=== PATIENT | female | born 1990 | race Caucasian/White ===

== ENCOUNTER 2017-08-08 12:50 | Inpatient (IN) | payer BC ==
[2017-08-08 13:28] VITALS: BMI 26.6
[2017-08-08] MEDS ORDERED: Lidocaine 1% (PF) 30 ML VIAL ONE (13:51)
[2017-08-08] MEDS ORDERED: LR / Pitocin 40 units/1000 ml 1,000 ML ONE (13:51)
[2017-08-08] MEDS ORDERED: Ibuprofen 800 MG TAB PO PRN (14:02)
[2017-08-08] MEDS ORDERED: LR / Pitocin 40 units/1000 ml 1,000 ML IV PRN (14:02)
[2017-08-08] MEDS ORDERED: Methylergonovine 0.2 MG/ML VIAL IM PRN (14:02)
[2017-08-08] MEDS ORDERED: Acetaminophen 500 MG TAB PO PRN (14:02)
[2017-08-08] MEDS ORDERED: Promethazine HCl 25 MG/ML VIAL IM PRN (14:02)
[2017-08-08] MEDS ORDERED: Ondansetron HCl/PF 4 MG/2 ML Vial IVP PRN (14:02)
[2017-08-08] MEDS ORDERED: Lidocaine 1% (PF) 30 ML VIAL SC PRN (14:02)
[2017-08-08] MEDS ORDERED: Carboprost 250 MCG/ML AMP IM PRN (14:02)
[2017-08-08] MEDS ORDERED: Misoprostol 200 MCG TAB PR PRN (14:02)
[2017-08-08 14:29] LABS: Red Blood Cell (RBC) Count 3.91 mill/uL (4.20-5.40); White Blood Cell (WBC) Count 9.4 thou/uL (4.8-10.8)
[2017-08-08] MEDS ORDERED: Adacel (T-DAP) 0.5 ML VIAL IM ONE (18:02)
[2017-08-08] MEDS ORDERED: Bisacodyl 10 MG SUPP PR PRN (18:02)
[2017-08-08] MEDS ORDERED: Ferrous Sulfate 325 MG TAB PO SCH (18:02)
[2017-08-08] MEDS ORDERED: traMADol HCl 50 MG TAB PO PRN (18:02)
[2017-08-08] MEDS ORDERED: LR / Pitocin 40 units/1000 ml 1,000 ML IV SCH (18:02)
[2017-08-08] MEDS ORDERED: Lanolin Ointment 7 GM TUBE TOP PRN (18:02)
[2017-08-08] MEDS ORDERED: Milk Of Magnesia 30 ML UDCUP PO PRN (18:02)
[2017-08-08] MEDS ORDERED: Preparation H Ointment 28 GM TUBE PR PRN (18:02)
--- NOTE | 2017-08-08 18:43 | OP ---
DATE OF DELIVERY: 08/08/2017 PREOPERATIVE DIAGNOSIS: Term intrauterine . POSTOPERATIVE DIAGNOSIS: Term intrauterine . PROCEDURE PERFORMED: Normal spontaneous vaginal delivery. SURGEON: Sherice Velazquez M.D. ANESTHESIA: None. ESTIMATED BLOOD LOSS: 300 mL. BRIEF DELIVERY SUMMARY: This is a 27-year-old G2, now P2 who presented in active labor. She progre ssed well to complete and pushing. She delivered a live male infant, head OA. Mouth and nares was bulb suctioned at the perineum. There was no nuchal cord. Shoulders and body easily followed and t he infant was placed on mother's abdomen. Infant's Apgars were 8 at 1 minute and 9 at 5 minutes. T he umbilical cord was doubly clamped and cut and cord blood was collected and sent for analysis. Pl francois delivered spontaneously and intact with a 3-vessel umbilical cord. There was a large gush of blood following the delivery of the placenta. Therefore, Pitocin was started in the IV. This reso lved with bimanual massage and evacuation of clot as well as Pitocin. Cervix, vagina, and perineum were inspected for lacerations and there were none to be found. Mom and baby were left with the lester se in excellent condition attempting to breast feed.
[2017-08-08] MEDS: Docusate Calcium (SURFAK) 240 MG CAP PO SCH (23:04)
[2017-08-08] MEDS: Ibuprofen 800 MG TAB PO SCH (23:04)
[2017-08-09] MEDS ORDERED: Prenatal Vitamin 1 TAB PO SCH (09:00)
[2017-08-09] MEDS: Ibuprofen 800 MG TAB PO SCH ×2 (09:47→14:28)
[2017-08-09] MEDS: Docusate Calcium (SURFAK) 240 MG CAP PO SCH (09:47)
[2017-08-09 12:04] VITALS: BP 118/68; TEMP 98
== END 2017-08-09 18:35 | disposition home or self-care (01) | DRG 775 ==
LOC: L&D/OP 12:50 → L&D-LIB 13:54 → 3SW 21:23
PROVIDERS: ADMIT Obstetrics & Gynecology; ATTEND Family Medicine
PROC: 10E0XZZ Delivery of Products of Conception, External Approach (ICD-10-PCS; principal; 2017-08-08)
DX: O80 Encounter for full-term uncomplicated delivery (principal); Z37.0 Single live birth; Z3A.41 41 weeks gestation of pregnancy
CPT/HCPCS: 85027; 86780; 87340; 90715; J2001

== ENCOUNTER 2018-07-18 11:00 | Outpatient (CLI) | payer OTHER ==
--- NOTE | 2018-07-18 13:40 | ULT ---
SONOGRAM RIGHT UPPER QUADRANT: Date: 07/18/18 HISTORY: Right upper quadrant pain. FINDINGS: No shadowing stones are apparent within the gallbladder lumen. At the level of the gallbladder neck, well circumscribed echogenicity along the gallbladder wall is continuous with the gallbladder. It castro s not have the appearance of a mobile stone. No shadowing. It appears to arise from the wall. Conside rations would include a very prominent gallbladder wall fold or nodular process arising from the gall bladder wall. No pericholecystic fluid. Common duct is 0.3 cm. Liver unremarkable without focal mass or intrahepatic biliary dilatation. No free fluid. IMPRESSION: 1. No evidence of gallstones or biliary obstruction. 2. Lobular nonshadowing prominence of the gallbladder wall near the gallbladder neck, as detailed ab ove. It could represent a prominent gallbladder fold. Given the appearance, however, follow-up is war ranted to exclude the possibility of a mass arising from the gallbladder wall. Please consider follow -up right upper quadrant sonogram in 6 months to evaluate for stability. POS: BANDAR
== END 2018-07-18 11:01 | disposition home or self-care (01) ==
LOC: ULT 11:00
PROVIDERS: ATTEND Family Medicine
DX: R10.11 Right upper quadrant pain (principal); K82.8 Other specified diseases of gallbladder
CPT/HCPCS: 76705

== ENCOUNTER 2019-11-15 12:36 | Inpatient (IN) | payer OTHER ==
[2019-11-15 13:15] VITALS: BMI 28.1
[2019-11-15] MEDS ORDERED: hydrALAZINE 20 MG/ML VIAL SLOW IVP PRN ×2 (13:37→14:26)
[2019-11-15 14:08] LABS: Amnisure Test RUPTURE DETECTED (No Rupture)
[2019-11-15 14:10] LABS: Amnisure Internal Control QC ACCEPTABLE (ACCEPTABLE)
[2019-11-15] MEDS ORDERED: Promethazine HCl 25 MG/ML VIAL IM PRN ×2 (14:26→21:14)
[2019-11-15] MEDS ORDERED: Methylergonovine 0.2 MG/ML VIAL IM PRN (14:26)
[2019-11-15] MEDS ORDERED: Acetaminophen 500 MG TAB PO PRN (14:26)
[2019-11-15] MEDS ORDERED: Ondansetron PF 4 MG/2 ML Vial IVP PRN ×2 (14:26→21:14)
[2019-11-15] MEDS ORDERED: Misoprostol 200 MCG TAB PR PRN (14:26)
[2019-11-15] MEDS ORDERED: Diphenoxylate HCl/Atropine Tablet PO PRN ×2 (14:26)
[2019-11-15] MEDS ORDERED: Lidocaine 1% (PF) 30 ML VIAL SC PRN (14:26)
[2019-11-15] MEDS ORDERED: Carboprost 250 MCG/ML AMP IM PRN (14:26)
[2019-11-15] MEDS ORDERED: Ibuprofen 800 MG TAB PO PRN (14:26)
[2019-11-15] MEDS ORDERED: NS / Oxytocin 40 units/1000ml 1,000 ML IV PRN (14:26)
[2019-11-15 15:33] LABS: Hemoglobin 11.6 g/dL (12.0-16.0); Mean Corpuscular HGB CONC 34.9 g/dL (32.0-36.0); Mean Corpuscular Hemoglobin 30.6 pg (27.0-31.0); Mean Corpuscular Volume 87.6 fL (78.0-98.0); Mean Platelet Volume 9.7 fL (7.4-10.4); Platelet Count 171 thou/uL (130-400); RBC Distribution Width 11.5 % (11.5-14.5); Red Blood Cell (RBC) Count 3.79 mill/uL (4.20-5.40); White Blood Cell (WBC) Count 9.4 thou/uL (4.8-10.8)
[2019-11-15 16:11] LABS: Syphilis Antibody Nonreactive (Nonreactive); Syphilis Antibody Index 0.05 S/CO (<1.00 Non-Reactive)
[2019-11-15 16:12] LABS: HBSAg Index 0.17 S/CO (0-0.99); Hep B Surf Ag Non-Reactive S/CO (NonReactive)
--- NOTE | 2019-11-15 16:54 | PDOC.LDHP ---
Labor and Delivery H&P Chief complaint: loss of fluid (Yesterday, clear, small amount, continues to trickle) HPI: Term IUP. ROM yesterday morning, slow leak, clear fluid. CTX started today, not really strong yet. Getting a little more frequent. Current gestational age (weeks): 40 Due date: 11/12/19 Dating criteria: last menstrual period, first trimester ultrasound Grav: 6 Para: 2 OB History Details: MTHFR mutation on methylated folate, on progesterone and ASA this for h/o recurrent miscarriage Current complications: none Abnormal US findings: No Current medications: pre-rody vitamins Previous surgical history: none Allergies/Adverse Reactions: Allergies Allergy/AdvReac Type Severity Reaction Status Date / Time morphine Allergy Verified 03/21/15 16:44 Social history: none - Physical Exam Vital signs reviewed and normal: yes General: NAD Heart: RRR Lungs: CTAB Abdomen: gravid Extremeties: no edema FHT: category 1, variability present [place] contractions every: 5 minutes - Vaginal Exam cm dilated: 4 Effacement: 50% Station: -2 - OB Labs Blood type: O RH: positive Antibody Screen: negative HIV: negative RPR: negative HEPSAg: negative 1 hour GCT: negative GBS: negative Urine drug screen: not done Rubella: immune - Assessment L&D Assessment: term rupture in membranes (Clear fluid. Amnisure positive. Leaking increased as was being admitted to L&D.) - Plan Plan: admit to L&D, labor augmentation if indicated, informed consent obtained, anesthesia consult for pain management (Wants low intervention. Admitted to low intervention suite.)
[2019-11-15 18:02] LABS: HIV (1/2) Antibody/Antigen Non-Reactive (NonReactive); HIV 1/2 INDEX 0.07 S/CO (<1.00)
[2019-11-15] MEDS ORDERED: Lidocaine 1% (PF) 30 ML VIAL ONE (19:18)
[2019-11-15] MEDS ORDERED: Fentanyl 4 mcg/Bup 0.1% Cadd 100 ML ONE (20:46)
[2019-11-15] MEDS ORDERED: Fentanyl 100 MCG/2 ML VIAL ONE (20:57)
[2019-11-15] MEDS: Lactated Ringer's 1,000 ML IV SCH (21:00)
[2019-11-15] MEDS ORDERED: Acetaminophen 325 MG TAB PO PRN (21:14)
[2019-11-15] MEDS ORDERED: ePHEDrine/0.9% NaCl/PF SYRINGE 50 mg/10 ml SLOW IVP PRN (21:14)
[2019-11-15] MEDS ORDERED: diphenhydrAMINE 50 MG/ML VIAL IVP PRN (21:14)
[2019-11-15] MEDS ORDERED: Naloxone HCl 0.4 mg/ml Vial IVP PRN ×2 (21:14)
[2019-11-15] MEDS ORDERED: Lactated Ringer's 500 ML IV PRN (21:14)
[2019-11-15] MEDS ORDERED: Communication Order-Pharmacy FS SCH (21:15)
[2019-11-15] MEDS ORDERED: Fentanyl 4 mcg/Bupivacaine 0.1% Cassette 100 ML EPIDURAL SCH (21:15)
--- NOTE | 2019-11-15 22:57 | PDOC.OPDEL ---
OB Operative/Delivery Note Delivery Dr/Surgeon: Marcus Pre-Delivery Diagnosis: active labor, ruptured membrane Procedure/Post Delivery Dx: spontaneous vaginal delivery (Head OA, nuchal cord x3 unable to reduce prior to the shoulders, shoulders and body easily followed and cord untangled. placed on mother's abdomen. Cord clamped and cut.) Weeks gestation: 40 Anesthesia: epidural - Findings A Sex: male - 1 min: 8 - 5 min: 9 - Additional Findings/Plan Placenta delivered: spontaneous (Intact, 3 vessel cord) Repaired Obstetrical Laceration: none Estimated blood loss: 317 Post delivery plan: routine recovery
[2019-11-16] MEDS ORDERED: Milk Of Magnesia 30 ML UDCUP PO PRN (00:39)
[2019-11-16] MEDS ORDERED: hydrALAZINE 20 MG/ML VIAL SLOW IVP PRN (00:39)
[2019-11-16] MEDS ORDERED: Bisacodyl 10 MG SUPP PR PRN (00:39)
[2019-11-16] MEDS ORDERED: NS / Oxytocin 40 units/1000ml 1,000 ML IV SCH (00:39)
[2019-11-16] MEDS ORDERED: Preparation H Ointment 28 GM TUBE PR PRN (00:39)
[2019-11-16] MEDS ORDERED: Benzocaine-Menthol 82.5 ML CAN TOP PRN (00:39)
[2019-11-16] MEDS ORDERED: Docusate Calcium (SURFAK) 240 MG CAP PO SCH (01:00)
[2019-11-16] MEDS ORDERED: Ibuprofen 800 MG TAB PO SCH (01:00)
[2019-11-16] MEDS: Lactated Ringer's 1,000 ML IV SCH ×3 (06:05→22:06)
[2019-11-16] MEDS: Ibuprofen 800 MG TAB PO SCH ×3 (06:13→20:26)
[2019-11-16] MEDS: Ferrous Sulfate 325 MG TAB PO SCH ×2 (07:40→17:52)
[2019-11-16] MEDS ORDERED: Adacel (T-DAP) 0.5 ML SYRINGE IM ONE (09:00)
[2019-11-16] MEDS: Docusate Calcium (SURFAK) 240 MG CAP PO SCH ×2 (09:21→20:26)
--- NOTE | 2019-11-16 11:32 | PDOC.PP ---
Post Progress Note Post Day #: 1 Subjective: Doing well. Tired. No sleep last night. Some nipple pain with but seems to be latching well. Feeding well. Lochia normal. PO intake tolerated: yes Flatus: yes Ambulation: yes Vital Signs (12 hours) Temp Pulse Resp BP Pulse Ox 11/16/19 08:00 98.1 F 76 16 110/69 98 11/16/19 03:30 98.5 F 83 18 107/56 L 97 11/16/19 02:20 98.8 F 88 18 114/59 L 11/16/19 01:18 99.0 F 88 18 120/60 98 Weight Weight 180 lb - Physical Examination General: NAD Cardiovascular: no m/r/g, RRR Respiratory: clear to auscultation bilaterally Abdominal: + bowel sounds, lochia, no distention, appropriately TTP Extremities: negative homans (B) Neurological: no gross focal deficits Psychiatric: A&Ox3 Result Diagrams: 11/15/19 15:20 Additional Labs: Post Labs Blood Type O POSITIVE 11/15/19 15:21 Hep Bs Antigen Non-Reactive S/CO (NonReactive) 11/15/19 15:20 (1) Vaginal delivery Code(s): O80 - ENCOUNTER FOR FULL-TERM UNCOMPLICATED DELIVERY Status: Acute (2) Term Code(s): Z34.80 - ENCOUNTER FOR SUPRVSN OF NORMAL , UNSP TRIMESTER Status: Acute - Assessment/Plan Routine PP long term tomorrow F/U in 6 weeks Continue to work on Try to sleep today
[2019-11-16 21:54] VITALS: BP 111/71; TEMP 98.4
[2019-11-17] MEDS: Ibuprofen 800 MG TAB PO SCH (03:12)
[2019-11-17] MEDS: Lactated Ringer's 1,000 ML IV SCH (07:31)
[2019-11-17] MEDS: Docusate Calcium (SURFAK) 240 MG CAP PO SCH (09:27)
[2019-11-17] MEDS: Ferrous Sulfate 325 MG TAB PO SCH (09:30)
--- NOTE | 2019-11-17 10:19 | PDOC.PP ---
Post Progress Note Post Day #: 2 Subjective: Doing well. Met with today. Ready to go home. PO intake tolerated: yes Flatus: yes Ambulation: yes Weight Weight 180 lb - Physical Examination General: NAD Cardiovascular: no m/r/g, RRR Respiratory: clear to auscultation bilaterally, non-labored breathing Abdominal: + bowel sounds, lochia, no distention, appropriately TTP Extremities: negative homans (B) Result Diagrams: 11/15/19 15:20 Additional Labs: Post Labs Blood Type O POSITIVE 11/15/19 15:21 Hep Bs Antigen Non-Reactive S/CO (NonReactive) 11/15/19 15:20 (1) Vaginal delivery Code(s): O80 - ENCOUNTER FOR FULL-TERM UNCOMPLICATED DELIVERY Status: Acute (2) Term Code(s): Z34.80 - ENCOUNTER FOR SUPRVSN OF NORMAL , UNSP TRIMESTER Status: Acute - Assessment/Plan Routine PP care D/C home F/U in 6 weeks
== END 2019-11-17 11:35 | disposition home or self-care (01) | DRG 806 ==
LOC: L&D/OP 12:36 → L&D-LIB 15:53 → 3SW 11-16 02:18
PROVIDERS: ADMIT Family Medicine; ATTEND Family Medicine
PROC: 10E0XZZ Delivery of Products of Conception, External Approach (ICD-10-PCS; principal; 2019-11-15)
DX: O69.81X0 Labor and delivery complicated by cord around neck, without compression, not applicable or unspecified (principal); E72.12 Methylenetetrahydrofolate reductase deficiency; Z37.0 Single live birth; Z3A.40 40 weeks gestation of pregnancy; O48.0 Post-term pregnancy; O99.284 Endocrine, nutritional and metabolic diseases complicating childbirth
CPT/HCPCS: 36415; 84112; 85027; 86780; 86850; 86900; 86901; 87340; 87389; J2001; J3010